=== PATIENT | female | born 1950 | race Caucasian/White ===

== ENCOUNTER 2019-04-12 12:49 | Emergency (ER) | payer MEDICARE ==
--- OUTSIDE RECORDS SUMMARY | 2019-04-12 13:14 | XMS REPORT | Continuity of Care Document ---
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 Problems Description No Information Available Social History Type Date Description Comments Sex Unknown Tobacco Use Start: Unknown Never Smoked Cigarettes ETOH Use Occasionally consumes alcohol Recreational Drug Use Denies Drug Use Tobacco Use Start: Unknown Patient has never smoked Smoking Status Reviewed: 03/06/19 Patient has never smoked Exercise Type/Frequency Exercises regularly Seat Belt/Car Seat Always uses seat belt Allergies, Adverse Reactions, Alerts Description No Known Drug Allergies Medications Active Medications SIG Qnty Indications Ordering Provider Date Misoprostol place one tab in 1tabs Kimberly Pearce MD 01/20/2014 200mcg Tablets upper vagina evening before surgery Zoloft Unknown 25mg Levothyroxine Sodium Unknown 50mcg Simvastatin Unknown 40mg Xanax 1 po prn Unknown 0.25mg Lorazepam 1/2 po prn Unknown 0.5mg Vitamin C Unknown 2000 Glucosamine Sulfate Unknown 1500mg Magnesium Citrate 1 po bid` Unknown 100mg Super B Complex Maxi Unknown Co Q10 Maximum Strength 1 po qd Unknown 200 Aspirin 1 by mouth every Unknown 81mg Chewtabs day Medications Administered in Office Medication SIG Qnty Indications Ordering Provider Date PT SCRN Tbco Id as Non User Ladan Quiros MD 02/19/2019 Injection Immunizations Description No Information Available Vital Signs Date Vital Result Comment 03/06/2019 11:44am Height 65.25 inches 5'5.25" Last Menstrual Period 7239488 0 Parity 0 02/19/2019 10:02am BP Systolic 124 mmHg BP Diastolic 72 mmHg Height 65.25 inches 5'5.25" Weight 140.00 lb BMI (Body Mass Index) 23.1 kg/m2 Last Menstrual Period 7830178 0 Results Test Acquired Date Facility Test Result H/L Range Note Laboratory test 02/19/2019 [facility] Surgical SEE RESULT 1 [place] [address] Pathology BELOW [phone] SEE RESULT BELOW Name: ELLEN MCNEILL : [address]: Ladan Quiros MD Acct: [id number] Unit: [id number] AGE: 68 Location: [facility] Re02/19/19 SEX: F Status: REG REF SPEC: [id number] FRANKIE: 02/19/19-1050 [facility] DR: Ladan Quiros MD REQ: [id number] RECD: 02/19/194605 STATUS: INOCENTE ROSEN DR: Domitila Fairbanks MD _ ORDERED: LEVEL 4, SPEC STAIN ORG/2 COMMENTS: [id number] FINAL DIAGNOSIS Skin, vulva, biopsy: -- Fragment of orthokeratotic stratum corneum. -- No underlying epidermis or dermis present for evaluation. COMMENT: GMS and PAS stains, with appropriately reacting controls, are negative for fungal organisms. PRE-OPERATIVE DIAGNOSIS Vulvar lesion GROSS DESCRIPTION The specimen is received in formalin labeled, Exfoliated Skin of Vulvar Lesion, and consists of a 1.3 x 0.5 x 0.1 cm chowdhury-white focally bosselated irregular thickened skin shave which is inked, serially sectioned and some and entirely in one cassette. Signed by and Reported on: Ellen Vaughan MD 02/20/19 1706 END OF REPORT DEPARTMENT OF PATHOLOGY, [address] [place] [address] Sd Blanc M.D. Director [facility] # [id number] Procedures Date Code Description Status 02/25/2018 [id number] Mammogram Completed 02/25/2013 [id number] Colonoscopy Completed Medical Devices Description No Information Available Encounters Type Date Location Provider Dx Diagnosis Office Visit 02/19/2019 [facility] Ladan Quiros, S30.23xA Contusion of vagina 10:00a and vulva, initial encounter Assessments Date Code Description Provider 02/19/2019 S30.23xA Contusion of vagina and vulva, initial Ladan Quiros MD encounter Plan of Treatment No Information Available Functional Status Description No Information Available Mental Status Description No Information Available Referrals Description No Information Available
--- OUTSIDE RECORDS SUMMARY | 2019-04-12 13:14 | XMS REPORT | Continuity of Care Document ---
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 Problems Description No Information Available Social History Type Date Description Comments Sex Unknown Tobacco Use Start: Unknown Never Smoked Cigarettes ETOH Use Occasionally consumes alcohol Recreational Drug Use Denies Drug Use Tobacco Use Start: Unknown Patient has never smoked Smoking Status Reviewed: 02/19/19 Patient has never smoked Exercise Type/Frequency Exercises [...] Available Vital Signs Date Vital Result Comment 02/19/2019 10:02am BP Systolic 124 mmHg BP Diastolic 72 mmHg Height 65.25 inches 5'5.25" Weight 140.00 lb BMI (Body Mass Index) 23.1 kg/m2 Last Menstrual Period 6035524 0 01/18/2014 2:06pm BP Systolic 124 mmHg BP Diastolic 74 mmHg Body Temperature 98.5 F Heart Rate 72 /min Respiratory Rate 12 /min Height 65.25 inches 5'5.25" Weight 137.00 lb BMI (Body Mass Index) 22.6 kg/m2 0 Results Test Acquired Date Facility Test Result H/L Range Note Laboratory test 02/19/2019 [facility] Surgical SEE RESULT [address] [place] [address] Pathology BELOW [phone] SEE RESULT BELOW Name: ELLEN MCNEILL : [address]: Ladan Quiros MD Acct: [id number] Unit: [id number] AGE: 68 Location: [facility] Re02/19/19 SEX: F Status: REG REF SPEC: [id number] FRANKIE: 02/19/19-[address] [facility] [address]: Ladan Quiros MD REQ: [id number] RECD: 02/19/19-8209 STATUS: INOCENTE ROSEN DR: Domitila Fairbanks MD _ ORDERED: LEVEL 4, SPEC STAIN ORG/2 COMMENTS: [id number] FINAL DIAGNOSIS Skin, vulva, biopsy: -- Fragment [...] 1706 END OF REPORT DEPARTMENT OF PATHOLOGY, [address] [place] [address] Sd Blanc M.D. Director [facility] # [id number] Procedures Date Code Description Status 02/25/2018 [id number] Mammogram Completed 02/25/2013 [id number] Colonoscopy Completed Medical Devices Description No Information Available Encounters Type Date Location Provider Dx Diagnosis Office Visit 02/19/2019 [facility] Ladan Quiros S30.23xA Contusion of vagina 10:00a and vulva, initial encounter Assessments Date Code Description Provider 02/19/2019 S30.23xA Contusion of vagina and vulva, initial Ladan Quiros MD encounter Plan of Treatment Future Appointment(s):03/06/2019 11:45 am - Ladan Quiros MD at [facility]02/19/2019 - Ladan Quiros MDS30.23xA Contusion of vagina and vulva, initial encounterComments:Pt with extensive hematoma of left and bruising on right labia minora. Pt with blood thinner and combination of bicycling stationary has resulted in large tender now itchy contusion. Superficial skin that is sluffing has been sent for evaluation. Pt to f/u for recheck in 1-2 weeks. Functional Status Description No Information Available Mental Status Description No Information Available Referrals Description No Information Available
--- OUTSIDE RECORDS SUMMARY | 2019-04-12 13:14 | XMS REPORT | Continuity of Care Document ---
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 Active Problems Provider Date Atrophic vulva Ladan Quiros MD Onset: 03/10/2019 Contusion of genital organ Ladan Quiros MD Onset: 03/10/2019 Polyp of corpus uteri Kimberly Pearce MD Onset: 03/10/2019 Osteoarthritis Ladan Quiros MD Onset: 03/26/2019 Hypothyroidism Ladan Quiros MD Onset: 03/26/2019 Social History Type Date Description Comments Sex Unknown Tobacco Use Start: Unknown Never Smoked Cigarettes ETOH Use Occasionally consumes alcohol Recreational Drug Use Denies Drug Use Tobacco Use Start: Unknown Patient has never smoked Smoking Status Reviewed: 03/25/19 Patient has never smoked Exercise Type/Frequency Exercises regularly Seat Belt/Car Seat Always uses seat belt Allergies, Adverse Reactions, Alerts Description No Known Drug Allergies Medications Active Medications SIG Qnty Indications Ordering Date Provider Estradiol place a 42.500gm Ladan 02/19/2019 0.1mg/GM Cream pea-sized MD Ishaan amount to area daily for 7 days at night then 3 times per week Misoprostol place one tab 1tabs Kimberly Pearce, 01/20/2014 200mcg in upper vagina Tablets evening before surgery Zoloft Unknown 25mg Levothyroxine Sodium Unknown 50mcg Simvastatin Unknown 40mg Xanax 1 po prn Unknown 0.25mg Lorazepam 1/2 po prn Unknown 0.5mg Vitamin C Unknown 1999 Glucosamine Sulfate Unknown 1500mg Magnesium Citrate 1 po bid` Unknown 100mg Super B Complex Maxi Unknown Co Q10 Maximum 1 po qd Unknown Strength 200 Aspirin 1 by mouth Unknown 81mg Chewtabs every day Medications Administered in Office Medication SIG Qnty Indications Ordering Provider Date PT SCRN Tbco Id as Non User Ladan Quiros MD 03/25/2019 Injection PT SCRN Tbco Id as Non User Ladan Quiros MD 03/06/2019 Injection PT SCRN Tbco Id as Non User Ladan Quiros MD 02/19/2019 Injection Immunizations Description No Information Available Vital Signs Date Vital Result Comment 03/25/2019 11:39am BP Systolic 130 mmHg BP Diastolic 68 mmHg Height 65.25 inches 5'5.25" Weight 136.00 lb BMI (Body Mass Index) 22.5 kg/m2 Last Menstrual Period 7559986 0 Parity 0 03/06/2019 11:44am BP Systolic 118 mmHg BP Diastolic 60 mmHg Height 65.25 inches 5'5.25" Weight 138.00 lb BMI (Body Mass Index) 22.8 kg/m2 Last Menstrual Period 3805519 0 Parity 0 Results Test Acquired Date Facility Test Result H/L Range Note Laboratory test 02/19/2019 [facility] Surgical SEE RESULT [address] [place] [address] Pathology BELOW [phone] SEE RESULT BELOW Name: ELLEN MCNEILL : [address]: Ladan Quiros MD Acct: [id number] Unit: [id number] AGE: 68 Location: [facility] Re02/19/19 SEX: F Status: REG REF SPEC: [id number] FRANKIE: 02/19/19-1049 [facility] DR: Ladan Quiros MD REQ: [id number] RECD: 02/19/192008 STATUS: INOCENTE ROSEN DR: Domitila Fairbanks MD _ ORDERED: LEVEL 4, SPEC STAIN ORG/2 COMMENTS: [id number] FINAL DIAGNOSIS Skin, vulva, biopsy: -- Fragment [...] 1706 END OF REPORT DEPARTMENT OF PATHOLOGY, [address] [place] [address] Sd Blanc M.D. Director [facility] # [id number] Procedures Date Code Description Status 02/25/2018 [id number] Mammogram Completed 02/25/2013 23662738 Colonoscopy Completed Medical Devices Description No Information Available Encounters Type Date Location Provider Dx Diagnosis Office Visit 03/25/2019 [facility] Ladan Quiros, S30.23xA Contusion of vagina 11:45a MD and vulva, initial encounter Office Visit 03/06/2019 [facility] Ladan Quiros, N90.5 Atrophy of vulva 11:45a MD Office Visit 02/19/2019 [facility] Ladan Quiros S30.23xA Contusion of vagina 10:00a MD and vulva, initial encounter Assessments Date Code Description Provider 03/25/2019 S30.23xA Contusion of vagina and vulva, initial Ladan Quiros MD encounter 03/06/2019 N90.5 Atrophy of vulva Ladan Quiros MD 02/19/2019 S30.23xA Contusion of vagina and vulva, initial Ladan Quiros MD encounter Plan of Treatment Future Appointment(s):04/02/2019 9:00 am - Ladan Quiros MD at [facility]03/25/2019 - Ladan Quiros MDS30.23xA Contusion of vagina and vulva, initial encounterComments:Pt with new bruising to right labia minora. Pt to use vuvlar E2 and place E2 to vagina to help improve elasticity of tissue and hopefully decrease bruising. Pt currently on Baby ASA which adds to ease of bruising on labia Functional Status Description No Information Available Mental Status Description No Information Available Referrals Description No Information Available
[2019-04-12 13:25] LABS: ABS Basophils 0.1 10^3/ul (0-0.2); ABS Eosinophils 0.1 10^3/ul (0-0.6); ABS Lymphocytes 1.2 10^3/ul (1.0-4.8); ABS Monocytes 0.7 10^3/ul (0-0.8); ABS Neutrophils 3.2 10^3/ul (1.5-7.7); Eosinophil % 1.3 %; Hematocrit 40 % (35-47); Hemoglobin 13.4 g/dL (12.0-16.0); Lymphocyte % 22.9 %; Mean Corpuscular HGB Conc 34 g/dL (31-36); Mean Corpuscular Hemoglobin 32 pg (27-31); Mean Corpuscular Volume 95 fL (80-97); Mean Platelet Volume 7.7 fL (7.4-10.4); Nucleated Red Blood Cells % 0.1; Platelet Count 232 10^3/uL (150-450); Red Blood Count 4.18 10^6 /uL (3.70-4.87); Red Cell Distribution Width 13 % (10-15); White Blood Count 5.2 10^3/uL (3.5-10.8)
[2019-04-12 13:36] LABS: Albumin 4.3 g/dL (3.2-5.2); Calcium 9.3 mg/dL (8.6-10.3); Magnesium 1.8 mg/dL (1.9-2.7); Potassium 3.5 mmol/L (3.5-5.0); Total Bilirubin 0.4 mg/dL (0.2-1.0)
[2019-04-12 13:42] LABS: Albumin/Globulin Ratio 1.7 (1-3); BUN/Creatinine Ratio 12.7 (8-20); EGFR African American 99.4 (>60); EGFR Non-African American 82.1 (>60); Globulin 2.6 g/dL (2-4); Total Protein 6.9 g/dL (6.4-8.9)
[2019-04-12 13:58] LABS: TSH (Thyroid Stimulating Horm) 2.79 mcIU/mL (0.34-5.60)
--- NOTE | 2019-04-12 15:27 | ED ---
Syncope/Near Syncope - HPI Summary HPI Summary: Pt. is a 68 y.o female who presents to the ER for evaluation of a syncopal episode that occurred 3 days ago. Pt. notes over the last few days she has had mild diarrhea and nausea and has not been eating or drinking much. Pt. Was on a plane back to [place] 3 days ago when she had a syncopal episode. Pt. states she stood up from the plane bathroom and passed out. Pt. denies associated chest pain, SOB, abd. pain, h/a, leg swelling/pain. Hx of TIA. Is not anticoagulated. Pt. notes she had stress test and AURELIANO roughly 5 years ago that was normal per pt. Pt. states today she is feeling better and started to eat toast but was concerned that her HR was in the 80's today which she states is high for her. Sxs are moderate in severity. No current modifying factors. - History Of Current Complaint Chief Complaint: EDSyncope Time Seen by Provider: 04/12/19 15:25 Hx Obtained From: Patient - Allergies/Home Medications Allergies/Adverse Reactions: Allergies Allergy/AdvReac Type Severity Reaction Status Date / Time No Known Allergies Allergy Verified 07/30/18 11:20 PMH/Surg Hx/FS Hx/Imm Hx Previously Healthy: Yes Endocrine/Hematology History: Reports: Hx Thyroid Disease Denies: Hx Diabetes Cardiovascular History: Reports: Other Cardiovascular Problems/Disorders - SIMVASTATIN FOR HX OF TIA Denies: Hx Hypertension, Hx Pacemaker/ICD Respiratory History: Denies: Hx Asthma History: Denies: Hx Dialysis, Hx Renal Disease Musculoskeletal History: Reports: Hx Arthritis - OSTEOARTHRITIS Denies: Hx Osteoporosis Sensory History: Reports: Hx Contacts or Glasses - GLASSES FOR DISTANT ONLY Denies: Hx Hearing Aid Opthamlomology History: Reports: Hx Contacts or Glasses - GLASSES FOR DISTANT ONLY Neurological History: Reports: Other Neuro Impairments/Disorders - OCCASIONAL LOWER BACK PAIN Psychiatric History: Denies: Hx Panic Disorder - Surgical History Surgery Procedure, Year, and Place: 02/2012 L5 S1 BACK SURGERY, [facility]/RIGHT KNEE LATERAL RELEASE AND BONE SPURS REMOVED THEN RT KNEE REPLACEMENT,RIGHT SHOULDER SURGERY,BILATERAL CARPAL TUNNEL AND TRIGGER FINGER RELEASES/TONSILLECTOMY,1975/ LEFT ANKLE SURGERY LIGAMENT RECONSRTUCTION, [place]. left Hip, right knee Hx Anesthesia Reactions: No Infectious Disease History: No Infectious Disease History: Denies: Traveled Outside the [place] in Last 30 Days - Family History Known Family History: Positive: Non-Contributory Family History: NON CONTRIBUTORY - Social History Occupation: Retired Lives: With Family Alcohol Use: Daily Alcohol Amount: 1 LIGHT BEER DAILY Substance Use Type: Reports: None Smoking Status (MU): Never Smoked Tobacco Review of Systems Constitutional: Negative Negative: Fever Eyes: Negative Positive: Nasal Discharge Cardiovascular: Negative Negative: Palpitations, Chest Pain Respiratory: Negative Negative: Shortness Of Breath, Cough Positive: Diarrhea, Nausea. Negative: Abdominal Pain, Vomiting Genitourinary: Negative Negative: dysuria Musculoskeletal: Negative Skin: Negative Positive: Syncope. Negative: Headache, Weakness, Paresthesia, Numbness Positive: Anxious All Other Systems Reviewed And Are Negative: Yes Physical Exam Triage Information Reviewed: Yes Vital Signs On Initial Exam: Initial Vitals Temp Pulse Resp BP Pulse Ox 98.8 F 85 19 117/79 100 04/12/19 12:50 04/12/19 12:50 04/12/19 12:50 04/12/19 12:50 04/12/19 12:50 Vital Signs Reviewed: Yes Appearance: Positive: Well-Appearing - Pt. sitting on side of bed in NAD. Family member present. Skin: Positive: Warm, Dry Head/Face: Positive: Normal Head/Face Inspection Eyes: Positive: Normal, EOMI, JENNIFER ENT: Positive: Pharynx normal, TMs normal Neck: Positive: Supple Respiratory/Lung Sounds: Positive: Clear to Auscultation, Breath Sounds Present Cardiovascular: Positive: Normal, RRR Abdomen Description: Positive: Nontender, Soft Musculoskeletal: Positive: Normal, Strength/ROM Intact. Negative: Edema Left, Edema Right Neurological: Positive: Normal, CN Intact II-III Psychiatric: Positive: Affect/Mood Appropriate Procedures - Sedation Patient Received Moderate/Deep Sedation with Procedure: No Diagnostics - Vital Signs Vital Signs Temp Pulse Resp BP Pulse Ox 04/12/19 14:39 98.8 F 71 19 107/66 100 04/12/19 12:50 98.8 F 85 19 117/79 100 - Laboratory Lab Results: Lab Results 04/12/19 04/12/19 04/12/19 Range/Units 13:17 13:17 13:17 WBC 5.2 (3.5-10.8) 10^3/uL RBC 4.18 (3.70-4.87) 10^6 /uL Hgb 13.4 (12.0-16.0) g/dL Hct 40 (35-47) % MCV 95 (80-97) fL MCH 32 H (27-31) pg MCHC 34 (31-36) g/dL RDW 13 (10-15) % Plt Count 232 (150-450) 10^3/uL MPV 7.7 (7.4-10.4) fL Neut % (Auto) 62.2 % Lymph % (Auto) 22.9 % [place] % (Auto) 12.6 % Eos % (Auto) 1.3 % Baso % (Auto) 1.0 % Absolute Neuts (auto) 3.2 (1.5-7.7) 10^3/ul Absolute Lymphs (auto) 1.2 (1.0-4.8) 10^3/ul Absolute Monos (auto) 0.7 (0-0.8) 10^3/ul Absolute Eos (auto) 0.1 (0-0.6) 10^3/ul Absolute Basos (auto) 0.1 (0-0.2) 10^3/ul Absolute Nucleated RBC 0.0 10^3/ul Nucleated RBC % 0.1 Sodium 132 L (135-145) mmol/L Potassium 3.5 (3.5-5.0) mmol/L Chloride 101 (101-111) mmol/L Carbon Dioxide 25 (22-32) mmol/L Anion Gap 6 (2-11) mmol/L BUN 9 (6-24) mg/dL Creatinine 0.71 (0.51-0.95) mg/dL Est GFR ( Amer) 99.4 (>60) Est GFR (Non-Af Amer) 82.1 (>60) BUN/Creatinine Ratio 12.7 (8-20) Glucose 143 H (70-100) mg/dL Lactic Acid 0.8 (0.5-2.0) mmol/L Calcium 9.3 (8.6-10.3) mg/dL Magnesium 1.8 L (1.9-2.7) mg/dL Total Bilirubin 0.40 (0.2-1.0) mg/dL AST 26 (13-39) U/L ALT 21 (7-52) U/L Alkaline Phosphatase 50 (34-104) U/L Troponin I 0.00 (<0.03) ng/mL Total Protein 6.9 (6.4-8.9) g/dL Albumin 4.3 (3.2-5.2) g/dL Globulin 2.6 (2-4) g/dL Albumin/Globulin Ratio 1.7 (1-3) TSH 2.79 (0.34-5.60) mcIU/mL Result Diagrams: 04/12/19 13:17 04/12/19 13:17 Lab Statement: Any lab studies that have been ordered have been reviewed, and results considered in the medical decision making process. Course/Dx Course Of Treatment: Pt. presenting after syncopal episode 3 days ago. Also mild diarrhea and nausea. Afebrile with stable VS. Pt. without SOB or leg swelling. Pt. notes improving nausea and started eating today. Pt. given IV fluids. Suspect dehydration. ECG done at 1304 shows a sinus rhythm of 76bpm, normal axis, no ST elevation or depression. Labs unremarkable other than mildly low mag and Na. Orthostatic VS normal. on re-exam pt. feeling better. Results discussed. She is tolerating PO fluids. Will dc home to . with pcp in 2-3 days. To increase fluids. Will return to er if sxs change or worsen. pt. understands and agrees with plan. - Diagnoses Differential Diagnosis/HQI/PQRI: Positive: Dysrhythmia, Hypoglycemia, Hypovolemia, Vasovagal Episode Provider Diagnoses: Syncope, Dehydration Discharge ED - Sign-Out/Discharge Documenting (check all that apply): Patient Departure - Discharge Plan Condition: Improved Disposition: HOME Patient Education Materials: Dehydration (ED), Syncope (ED) Referrals: Domitila Fairbanks MD [Primary Care Provider] - Additional Instructions: Please see your PCP in 2-3 days for recheck Increase fluids with water, Gatorade, pedialyte Return to ER if symptoms change or worsen - Billing Disposition and Condition Condition: IMPROVED Disposition: Home - Attestation Statements Provider Attestation: I was available for consult. This patient was seen by the GERARD. The patient was not presented to, seen by, or examined by me. -Nik
[2019-04-12] MEDS ORDERED: NS 0.9% 1000 ML** 1,000 ML IV ONE (15:40)
[2019-04-12 15:55] LABS: Urine Appearance Clear; Urine Bilirubin Negative (Negative); Urine Blood Negative (Negative); Urine Color Straw; Urine Glucose Negative (Negative); Urine Ketones Negative (Negative); Urine Nitrite Negative (Negative); Urine Protein Negative (Negative); Urine Specific Gravity 1.004 (1.010-1.030); Urine Urobilinogen Negative (Negative)
[2019-04-12 17:23] VITALS: BP 129/73
== END 2019-04-12 17:22 | disposition home or self-care (01) ==
LOC: ED 12:49
DX: R55 Syncope and collapse (principal); E86.0 Dehydration; E07.9 Disorder of thyroid, unspecified; Z86.73 Personal history of transient ischemic attack (TIA), and cerebral infarction without residual deficits; Z96.651 Presence of right artificial knee joint; Z79.899 Other long term (current) drug therapy
CPT/HCPCS: 36415; 80053; 81003; 83605; 83735; 84443; 84484; 85025; 93005; 96360; 99282

== ENCOUNTER 2019-04-27 23:15 | Inpatient (IN) | payer MEDICARE ==
[2019-04-27] MEDS ORDERED: fentaNYL* 50 MCG/ML 2 ML VIAL (100 MCG VIAL) IV SLOW PU ONE (23:34)
[2019-04-27] MEDS ORDERED: Ondansetron INJ* 2 MG/ML VIAL IV ONE (23:35)
--- NOTE | 2019-04-28 00:01 | ED ---
Lower Extremity - HPI Summary HPI Summary: 68-year-old female presents with right knee pain after fall today. States she was moving a mattress and she ended up falling down some stairs and landing on her right knee. She states she states she only has pain in the right knee. Had a total knee replacement in 2013 in [facility]. She denies any numbness or tingling. Denies any hip pain. No head injury. No loss consciousness. fall was mechanical fall. no chest pain or SOB. She has history of TIA and thyroid. - History of Current Complaint Chief Complaint: EDFall Stated Complaint: FALL PER EMS Time Seen by Provider: 04/27/19 23:30 Pain Intensity: 7 - Allergies/Home Medications Allergies/Adverse Reactions: Allergies Allergy/AdvReac Type Severity Reaction Status Date / Time No Known Allergies Allergy Verified 04/27/19 23:26 Home Medications: Home Medications Ascorbic Acid TAB* [Vitamin C TAB*] 1,000 mg PO BID 01/18/14 [History Confirmed 04/27/19] Aspirin [Aspirin EC] 81 mg PO QAM 01/18/14 [History Confirmed 04/27/19] Coenzyme Q10 (Ubidecarenone) [Co Q-10] 200 mg PO QAM 01/18/14 [History Confirmed 04/27/19] Glucosamine Sulfate Dipot Chlr [Glucosamine Sulfate] 750 mg PO BID 01/18/14 [ History Confirmed 04/27/19] Levothyroxine Sodium [Levoxyl] 50 mcg PO QAM 01/18/14 [History Confirmed ] Magnesium [Magnacaps] 100 mg PO BID 01/18/14 [History Confirmed 04/27/19] Sertraline HCl [Zoloft] 100 mg PO QAM 01/18/14 [History Confirmed 04/27/19] Cholecalciferol [Vitamin D] 1 tab PO DAILY 08/24/15 [History Confirmed 04/27/19] Pravastatin (NF) [Pravachol (NF)] 1 tab PO DAILY 08/24/15 [History Confirmed 04/16] PMH/Surg Hx/FS Hx/Imm Hx Endocrine/Hematology History: Reports: Hx Thyroid Disease Denies: Hx Diabetes Cardiovascular History: Reports: Other Cardiovascular Problems/Disorders - SIMVASTATIN FOR HX OF TIA Denies: Hx Hypertension, Hx Pacemaker/ICD Respiratory History: Denies: Hx Asthma History: Denies: Hx Dialysis, Hx Renal Disease Musculoskeletal History: Reports: Hx Arthritis - OSTEOARTHRITIS Denies: Hx Osteoporosis Sensory History: Reports: Hx Contacts or Glasses - GLASSES FOR DISTANT ONLY Denies: Hx Hearing Aid Opthamlomology History: Reports: Hx Contacts or Glasses - GLASSES FOR DISTANT ONLY Neurological History: Reports: Other Neuro Impairments/Disorders - OCCASIONAL LOWER BACK PAIN Psychiatric History: Denies: Hx Panic Disorder - Surgical History Surgery Procedure, Year, and Place: 02/2012 L5 S1 BACK SURGERY, [place]/RIGHT KNEE LATERAL RELEASE AND BONE SPURS REMOVED THEN RT KNEE REPLACEMENT,RIGHT SHOULDER SURGERY,BILATERAL CARPAL TUNNEL AND TRIGGER FINGER RELEASES/TONSILLECTOMY,1975/ LEFT ANKLE SURGERY LIGAMENT RECONSRTUCTION, [place]. left Hip, right knee Hx Anesthesia Reactions: No - Immunization History Date of Influenza Vaccine: 11/2018 Infectious Disease History: No Infectious Disease History: Denies: Traveled Outside the [place] in Last 30 Days - Family History Known Family History: Positive: Non-Contributory Family History: NON CONTRIBUTORY - Social History Alcohol Use: Daily Alcohol Amount: 1 LIGHT BEER DAILY Substance Use Type: Reports: None Smoking Status (MU): Never Smoked Tobacco Review of Systems Negative: Fever Negative: Chest Pain Negative: Shortness Of Breath Positive: Myalgia - right knee pain All Other Systems Reviewed And Are Negative: Yes Physical Exam Triage Information Reviewed: Yes Vital Signs On Initial Exam: Initial Vitals Pulse Pulse Ox 80 100 04/27/19 23:23 04/27/19 23:23 Vital Signs Reviewed: Yes Appearance: Positive: Pain Distress Skin: Positive: Warm, Dry Head/Face: Positive: Normal Head/Face Inspection Eyes: Positive: Normal, Conjunctiva Clear ENT: Positive: Pharynx normal Respiratory/Lung Sounds: Positive: Clear to Auscultation, Breath Sounds Present Cardiovascular: Positive: Normal, RRR Musculoskeletal: Positive: Limited @ - right knee, Other - good pulses, sensation grossly intact, capillary refill<2 secs, tenderness distal femur, edema noted to area, nontender right hip or ankle Neurological: Positive: Normal Psychiatric: Positive: Normal Procedures - Sedation Patient Received Moderate/Deep Sedation with Procedure: No Diagnostics - Vital Signs Vital Signs Temp Pulse Resp BP Pulse Ox 04/27/19 23:45 18 04/27/19 23:25 81 146/73 100 04/27/19 23:24 96.7 F 78 22 146/73 100 04/27/19 23:23 80 100 - Laboratory Result Diagrams: 04/28/19 00:35 04/28/19 00:35 Lab Statement: Any lab studies that have been ordered have been reviewed, and results considered in the medical decision making process. - Radiology knee Radiology Interpretation Completed By: ED Physician Summary of Radiographic Findings: distal femur fracture Re-Evaluation - Re-Evaluation First Eval Comment: pain is better with fenatyl Lower Extremity Course/Dx - Course Course Of Treatment: 68-year-old female presents with right knee pain after fall today. States she was moving a mattress and she ended up falling down some stairs and landing on her right knee. She states she states she only has pain in the right knee. Had a total knee replacement in 2013 in [facility]. She denies any numbness or tingling. Denies any hip pain. No head injury. No loss consciousness. fall was mechanical fall. no chest pain or SOB. She has history of TIA and thyroid. on exam tenderness distal right femur. neurovascular intact. xray shows distal femur fracture above knee replacement. discussed with dr bhardwaj who says can do surgery here and can admit to hospitalist. discussed with dr Gamboa who agrees to admit. - Diagnoses Differential Diagnosis/HQI/PQRI: Positive: Fracture (Closed), Sprain, Strain Provider Diagnoses: Femoral distal fracture, Fall Discharge ED - Sign-Out/Discharge Documenting (check all that apply): Patient Departure - Discharge Plan Condition: Stable Disposition: ADMITTED TO [facility] Referrals: Domitila Fairbanks MD [Primary Care Provider] - - Billing Disposition and Condition Condition: STABLE Disposition: Admitted to [facility]
[2019-04-28 00:42] LABS: ABS Basophils 0.3 10^3/ul (0-0.2); ABS Eosinophils 0.1 10^3/ul (0-0.6); ABS Lymphocytes 1.1 10^3/ul (1.0-4.8); ABS Monocytes 0.6 10^3/ul (0-0.8); ABS Neutrophils 5.6 10^3/ul (1.5-7.7); Eosinophil % 1.1 %; Hematocrit 36 % (35-47); Hemoglobin 12.3 g/dL (12.0-16.0); Lymphocyte % 14.3 %; Mean Corpuscular HGB Conc 34 g/dL (31-36); Mean Corpuscular Hemoglobin 32 pg (27-31); Mean Corpuscular Volume 93 fL (80-97); Mean Platelet Volume 7.6 fL (7.4-10.4); Platelet Count 281 10^3/uL (150-450); Red Blood Count 3.86 10^6 /uL (3.70-4.87); Red Cell Distribution Width 13 % (10-15); White Blood Count 7.7 10^3/uL (3.5-10.8)
[2019-04-28 00:50] LABS: Activated Partial Thrombo Time 31.3 seconds (26.0-38.0)
[2019-04-28 00:59] LABS: Albumin 4.1 g/dL (3.2-5.2); Albumin/Globulin Ratio 1.7 (1-3); BUN/Creatinine Ratio 21.4 (8-20); Calcium 9.3 mg/dL (8.6-10.3); EGFR Non-African American 83.5 (>60); Globulin 2.4 g/dL (2-4); Potassium 3.7 mmol/L (3.5-5.0); Total Bilirubin 0.4 mg/dL (0.2-1.0); Total Protein 6.5 g/dL (6.4-8.9)
[2019-04-28] MEDS ORDERED: HYDROmorphone INJ1* 1 MG/ML SYRINGE IV SLOW PU ONE (01:14)
[2019-04-28] MEDS ORDERED: Morphine INJ* 2 MG/ML 1 ML SYRINGE (TWO MG - NEW SYRINGE VERSION) IV PRN (01:42)
[2019-04-28] MEDS ORDERED: Al Hydrox/Mg Hydrox/Simet LIQ* 30 ML UDC PO PRN (01:42)
--- NOTE | 2019-04-28 04:01 | HP ---
ADDENDUM NOW INCLUDED ON THIS REPORT CC: Dr. Domitila Fairbanks * HISTORY AND PHYSICAL: DATE OF ADMISSION: 04/28/19 TIME OF ADMISSION: 2 a.m. PRIMARY CARE PHYSICIAN: Dr. Domitila Fairbanks. CHIEF COMPLAINT: Fall. HISTORY OF PRESENT ILLNESS: This is a 68-year-old woman with a history of hypothyroid and a TIA, who presents to the ED after she fell down 2 stairs. She had been dragging a memory foam mattress off a flight of stairs and when she rounded the corner with a landing that had 2 stairs going up, she turned around to pull it up after it got stuck and she fell down 2 stairs and landed on the landing. She had sudden onset of pain above her right knee and was brought to the emergency department. In the ED, she was found to have a distal femoral fracture and Orthopedic Surgery recommended admission and they will see her in the morning. PAST MEDICAL HISTORY: 1. Hypothyroidism. 2. TIA. PAST SURGICAL HISTORY: She has had multiple orthopedic surgeries including hip and knee replacements, shoulder and back surgeries, and carpal tunnel syndrome. HOME MEDICATIONS: 1. Zoloft 100 mg daily. 2. Pravastatin 20 mg daily. 3. Levothyroxine 50 mcg daily. 4. Aspirin 81 mg daily. FAMILY HISTORY: Unrelated. SOCIAL HISTORY: She is a never smoker. She drinks 1 beer per night. She lives with her partner Ellen Crocker who is her healthcare proxy as well. She exercises daily. REVIEW OF SYSTEMS: Positive for pain in the knee. She denies headache, visual changes, palpitations, lightheadedness, nausea, vomiting, chest pain, or shortness of breath. PHYSICAL EXAMINATION GENERAL: Alert, well-appearing woman, in no distress, resting comfortably. VITAL SIGNS: Temperature 96.7, heart rate 72, respiratory rate 20, pulse ox 99 % on room air, blood pressure 133/76. HEENT: Her pupils are 4 mm bilaterally and reactive to light. Her oral mucosa is moist. NECK: No JVP or adenopathy. CHEST: She is in a regular rate and rhythm with no murmurs. Her lungs are clear bilaterally. ABDOMEN: Soft, nontender, nondistended. No guarding or rebound. EXTREMITIES: The right knee has an old healed incision. I did not attempt to move the knee. She can wiggle her toes and ankles and her distal pulses are 2+ . Her compartments are soft. DIAGNOSTIC STUDIES/LAB DATA: White blood cells 7.7, hemoglobin 12.3, platelets 281. INR 1.0. Sodium 135, potassium 3.7, chloride 101, BUN 15, creatinine 0.7, glucose 127. Lactic acid 0.7. Troponin 0.00. Knee x-ray has not been read by Radiology, but has an obvious distal femur fracture. ASSESSMENT AND PLAN: This is a 68-year-old woman with a history of hypothyroid and transient ischemic attack, who presented to the emergency department after a fall and was found to have a distal femur fracture. 1. Right distal femur fracture. Orthopedics has already been consulted by the emergency department and they agreed to evaluate Ms. Mcneill in the morning for operative management. I will continue pain control with Dilaudid, which has been helpful for her in the emergency department so far. I am holding her aspirin in anticipation of surgical plan. I will get an EKG to assist in preop planning as well. Her RCRI is 1 point, which estimates a 6% 30-day risk of , VT, or cardiac arrest. She gets 1 point due to her history of cerebrovascular disease. She is appropriately managed medically with a statin and an aspirin. The aspirin will be on hold and she will be restarted postoperatively. I will sign her out to Dr. Fairbanks who knows her well and can add any further recommendations to her perioperative recommendations. 2. Hypothyroid. Continue her home dose of Synthroid. 3. Disposition: Admit to short stay. Keep n.p.o. for anticipation of surgical management. 4. Pain control with Dilaudid. 5. DVT prophylaxis with Lovenox. ADDENDUM: I have reviewed the EKG. The EKG shows normal sinus rhythm, normal axis, normal intervals, and no ST changes. [id number]/CPS #: [id number]/CPS #: [id number] BIB
[2019-04-28] MEDS: HYDROmorphone INJ1* 1 MG/ML SYRINGE IV PRN ×5 (04:25→18:32)
[2019-04-28] MEDS: NS 0.9% 1000 ML** 1,000 ML IV SCH ×2 (04:26→23:55)
[2019-04-28 05:20] LABS: Urine Appearance Clear; Urine Bilirubin Negative (Negative); Urine Blood Negative (Negative); Urine Color Yellow; Urine Glucose Negative (Negative); Urine Ketones Trace (Negative); Urine Nitrite Negative (Negative); Urine Protein Negative (Negative); Urine Specific Gravity 1.014 (1.010-1.030); Urine Urobilinogen Negative (Negative)
[2019-04-28] MEDS: Levothyroxine TAB* 50 MCG TAB PO SCH (05:53)
--- NOTE | 2019-04-28 07:12 | HP ---
HISTORY AND PHYSICAL: ADDENDUM: I have reviewed the EKG. The EKG shows normal sinus rhythm, normal axis, normal intervals, and no ST changes. [id number]/[facility] #: [id number] [facility] [place]
[2019-04-28] MEDS ORDERED: Enoxaparin(*) 40 MG/0.4 ML SYR SUBCUT SCH (08:00)
[2019-04-28] MEDS: Magnesium Oxide TAB* 400 MG PO SCH ×2 (09:02→23:49)
[2019-04-28] MEDS: Cholecalciferol TAB* 1000 UNITS PO SCH (09:02)
[2019-04-28] MEDS: Ascorbic Acid TAB* 500 MG PO SCH ×2 (09:02→23:49)
[2019-04-28] MEDS: Sertraline* 100 MG TAB PO SCH (09:03)
[2019-04-28] MEDS: CMCS:Pravastatin (NF) 20 MG TAB PO SCH (09:03)
[2019-04-28] MEDS ORDERED: LORazepam INJ* 2 MG/ML 1 ML VIAL IV PUSH ONE (09:51)
[2019-04-28] MEDS ORDERED: Lorazepam PYXIS KEY PRN (09:59)
--- NOTE | 2019-04-28 13:05 | CONS ---
CONSULTATION REPORT: DATE OF CONSULT: 04/28/19 ATTENDING ORTHOPEDIC PROVIDER: Dr. Lucila Chaparro. CHIEF COMPLAINT: Fall with right periprosthetic fracture of distal femur. HISTORY OF PRESENT ILLNESS: The patient is a 68-year-old female with past medical history of hypothyroidism and TIA, who presents to the emergency room after a mechanical fall. The fall occurred while she was dragging a memory foam mattress up a flight of stairs. She rounded the corner and fell directly to her knees. She had immediate pain in her right lower extremity. She had no other injuries. There was no associated chest pain, shortness of breath, dizziness, nausea. She was brought to the emergency room and identified to have a fracture of the distal femur periprosthetic around a total knee replacement. Total knee replacement was done in 2013 at [facility]. She has been n.p.o. since arrival to the hospital. She has no history of heart attack. She has no history of stroke, though she does have history of TIA. No history of blood clot. PAST MEDICAL HISTORY: Significant for hypothyroidism and TIA. PAST SURGICAL HISTORY: She has had her right total knee replacement in 2013. She had a left total hip replacement, carpal tunnel, history of shoulder surgery and back surgery. No history of adverse reactions with anesthesia. HOME MEDICATIONS: 1. Zoloft 100 mg p.o. daily. 2. Pravastatin 20 mg daily. 3. Levothyroxine 50 mcg daily. 4. Aspirin 81 mg daily. FAMILY HISTORY: No family history of adverse reactions with anesthesia. SOCIAL HISTORY: The patient lives with her partner, Ellen Crocker, in their own home. She uses no assistive device and she exercises daily. She is a nonsmoker. Drinks 1 beer per night. No drug use. REVIEW OF SYSTEMS: General: Negative for fever or chills. HEENT: No head trauma, headache, change in vision. Cardiac: No chest pain. No history of heart attack. Respiratory: No shortness of breath. No cough. Abdomen: No abdominal pain, nausea, vomiting, diarrhea. : No dysuria. Musculoskeletal: Positive for right lower extremity pain. Neuro: No decreased sensation of the extremities. Hematology: No history of blood clots. PHYSICAL EXAM: Vital Signs: Temperature 98.7, pulse rate 68, respiratory rate 19, oxygen saturation 100%, blood pressure 116/57. General: Well appearing, in no acute distress, resting comfortably in bed. HEENT: Normocephalic, atraumatic. Extraocular movements intact. Heart: S1, S2. Regular rate and rhythm without murmur. Lungs: Clear to auscultation bilaterally. Abdomen: Nondistended, nontender. Bowel sounds normoactive. Extremities: Bilateral upper extremities with skin envelope intact. Nontender to palpation. Able to flex and extend at all joints without any pain. Left lower extremity: Skin envelope intact. Nontender to palpation. Able to flex and extend at all joints without pain. Negative log roll at the hip. Right lower extremity: Skin envelope is intact. There is obvious deformity of the distal femur. She is tender to palpation about the distal femur. No tenderness to palpation about the extremity otherwise. Vascular: DP 2+ bilaterally. Cap refill less than 2 seconds distally. Neuro: Sensation intact to light touch distally. DIAGNOSTIC STUDIES/LAB DATA: WBC 7.7, hemoglobin 12.3, hematocrit 36, platelets 281. INR 1. Sodium 135, potassium 3.7, creatinine 0.7. Right knee x-ray demonstrates an angulated comminuted periprosthetic fracture of the right distal femur. ASSESSMENT: Periprosthetic fracture of the right distal femur. PLAN: The patient will be nonweightbearing, on bedrest. She will be in a knee immobilizer. The patient requests that Dr. Chaparro be her surgeon. She will have an ORIF of the right distal femur today, 04/28/19. Hold chemical DVT prophylaxis. The patient should use SCDs. Preop type and screen ordered. The patient has been medically optimized by medicine. Discussed with Dr. Domitila Fairbanks. NOLA JHAVERI [id number] #: [id number] BIB
[2019-04-28] MEDS ORDERED: Buffered Lidocaine 1% SYRIN* 1 ML/SYRINGE INTRADERM ONE (13:31)
[2019-04-28] MEDS ORDERED: Famotidine IV* 10 MG/ML 2 ML (20 mg) IV ONE (13:31)
[2019-04-28] MEDS ORDERED: Lactated Ringers 1000 ML Bag* 1,000 ML IV SCH (14:00)
[2019-04-28] MEDS ORDERED: Famotidine IV* 10 MG/ML 2 ML (20 mg) ONE (15:12)
[2019-04-28] MEDS ORDERED: ceFAZolin 2 GM in NS PREMIX(*) 2 GM/100 ML BAG IVPB ONE (15:33)
[2019-04-28] MEDS ORDERED: HYDROmorphone INJ* 0.5 MG/0.5 ML SYRINGE ONE (18:23)
[2019-04-28] MEDS ORDERED: HYDROmorphone INJ1* 1 MG/ML SYRINGE ONE (18:30)
[2019-04-28] MEDS ORDERED: Bupivacaine 0.5% SDV PF* 30ML VIAL ONE (18:31)
[2019-04-28] MEDS ORDERED: KETAMINE HCL* 50 MG/ML 10 ML VIAL ONE (18:31)
[2019-04-28] MEDS ORDERED: Midazolam* 1 MG/ML 5 ML VIAL (5 MG) ONE (18:31)
[2019-04-28] MEDS ORDERED: Propofol* 10 MG/ML 20 ML BTL ONE (19:12)
[2019-04-28] MEDS ORDERED: Dexamethasone IV* 4 MG/ML 1 ML (4 MG) ONE (19:12)
[2019-04-28] MEDS ORDERED: Ondansetron INJ* 2 MG/ML VIAL IV PRN (19:55)
[2019-04-28] MEDS ORDERED: Naloxone* 0.4 MG/ML 1 ML VIAL IV PRN (19:55)
[2019-04-28] MEDS ORDERED: diPHENhydraMINE IV* 50 MG/ML 1 ml VIAL (BENADRYL) IV PRN (19:55)
[2019-04-28] MEDS ORDERED: fentaNYL* 50 MCG/ML 2 ML VIAL (100 MCG VIAL) IV PRN (19:55)
[2019-04-28] MEDS ORDERED: HYDROcodone/ACETAMIN 5-325 MG* 1 TAB PO PRN (19:55)
[2019-04-28] MEDS ORDERED: DiMENhydriNATE IV* 50 MG/ML VIAL IV PUSH PRN (19:55)
[2019-04-28] MEDS ORDERED: diPHENhydraMINE IV* 50 MG/ML 1 ml VIAL (BENADRYL) ONE (20:45)
[2019-04-28] MEDS ORDERED: fentaNYL* 50 MCG/ML 2 ML VIAL (100 MCG VIAL) ONE (20:46)
[2019-04-28] MEDS ORDERED: Hetastarch 6% in NS* 500 ML IV ONE (21:07)
[2019-04-28] MEDS ORDERED: ceFAZolin VIAL(*) VIAL ONE (22:02)
[2019-04-28 22:47] LABS: Hematocrit 28 % (35-47); Hemoglobin 9.5 g/dL (12.0-16.0)
[2019-04-28] MEDS: LORazepam TAB(*) 0.5 MG PO PRN (23:48)
[2019-04-29] MEDS ORDERED: Acetaminophen TAB* 325 MG PO PRN
[2019-04-29] MEDS ORDERED: oxyCODONE/Acetamin 5/325 MG* TAB PO PRN
[2019-04-29] MEDS: HYDROmorphone INJ1* 1 MG/ML SYRINGE IV PRN ×3 (00:59→11:59)
[2019-04-29] MEDS: ceFAZolin 1 GM* X 3 DOSES POST-OP Q8H (AddVan) IVPB SCH ×6 (04:10→20:16)
--- NOTE | 2019-04-29 04:25 | OP ---
DATE OF OPERATION: 04/28/19 - ROOM #350 DATE OF : 52 SURGEON: Lucila Chaparro MD INSIDE WIREMAN: NOLA Padgett ANESTHESIOLOGIST: Dr. Weir. ANESTHESIA: Spinal. PRE-OP DIAGNOSIS: Right displaced comminuted distal femoral periprosthetic fracture. POST-OP DIAGNOSIS: Right displaced comminuted distal femoral periprosthetic fracture. OPERATIVE PROCEDURE: Open reduction and internal fixation of the right distal femoral periprosthetic fracture. HARDWARE USED: A distal femoral locking plate from [employer], this is a 12-hole distal femoral plate; two 6.0 cancellous screws and four 5.0 locking screws were used distally in the plate, proximally a 4.5 cortical screw and two 5.0 locking screws were used. Three Dall-Miles cables were also used for additional fixation. COMPLICATIONS: None. ESTIMATED BLOOD LOSS: 350 cc. SPECIMEN: None. BRIEF HISTORY/INDICATION: Ms. Mcneill is a 68-year-old female, who had a fall with immediate onset right thigh and knee pain. She was unable to bear weight and was brought to [facility]. She was diagnosed with a right distal periprosthetic fracture of the femur. This was noted to have extensive comminution and displacement. The patient was given operative and nonoperative treatment options. The patient elected to proceed with operative fixation of the fracture. We discussed using a distal locking plate and screws. We discussed the risks and benefits of the procedure that included but were not limited to bleeding, infection, damage to nearby structures, continued pain, need for further surgery, failure of the hardware, failure of the bone to heal, need for bone grafting in the future, anesthesia complications, stroke, heart attack, blood clot, and . She wished to proceed. INTRAOPERATIVE FINDINGS: The patient's fracture showed extensive comminution both anteriorly along the cortex and especially distally and posteriorly at the cortex. Her distal femoral implant was visualized and noted to be stable. The patient was noted to have osteopenia. DESCRIPTION OF PROCEDURE: Ms. Mcneill was identified in the preanesthesia unit. Her right lower extremity was marked as the correct operative site. Informed consent was signed and placed in the chart. The patient was taken to the operating room and placed under general anesthesia. A Dewitt catheter was placed. Right lower extremity was prepped and draped in usual sterile fashion. Preop time-out was made to correctly identify the patient, side and site. The appropriate perioperative antibiotics were given within 1 hour of incision. A standard lateral incision was made along the femur with a 10 blade and curved anteriorly at its distal point. Electrocautery was used to dissect down to the lateral fascia. Lateral fascia was incised. The vastus lateralis muscle was carefully elevated anteriorly with careful attention to hemostasis. The fracture site was identified. It was noted that the fracture site had extensive comminution. There was comminuted bone anteriorly just superior to the femoral implant and posteriorly as well. Reduction maneuver was performed and the fracture was brought out to length. Fracture site was irrigated with sterile saline. AP and lateral C-arm views confirmed satisfactory length of the fracture. There was extensive comminution and bone loss along the posterior cortex. Nearly the entire supracondylar region was comminuted. A 12-hole distal femoral plate was chosen. Plate was laid along the lateral cortex of the femur. Two K-wires were placed distally and position of the plate was confirmed to be satisfactory. A cortical screw followed by 4.5 locking screws was placed distally. Screws were different lengths because of the need to work around the femoral implant and cement. A stable construct was established distally. Next, the knee was once again brought out to length and 3 locking screws were placed proximal to the fracture site. The fracture was successfully bridged with the fracture brought out to length. Next, 2 Dall-Miles cables were used to further reduce some of the comminuted fracture fragments along the metaphyseal-diaphyseal junction. Once again, it was noted that there was extensive distal posterior bone loss. A third Dall-Miles cable was placed proximally along the plate as well. The fracture was bridged the construct was stable.The wound was copiously irrigated with sterile saline. The fascial layer was closed using interrupted # 1 Vicryls. The rest of the incision was closed in layered fashion using 0 and 2 -0 Vicryls. The skin was closed using nubia. Sterile Xeroform, 4x4s and Webril were used to cover the incision. Gopal wrap and a knee immobilizer were placed. Intended weightbearing will be nonweightbearing right lower extremity. Intended DVT prophylaxis will be Lovenox. [id number]/[id number] #: [id number] [facility]
[2019-04-29] MEDS: Levothyroxine TAB* 50 MCG TAB PO SCH (06:51)
[2019-04-29 07:09] LABS: ABS Lymphocytes 0.9 10^3/ul (1.0-4.8); ABS Monocytes 1.2 10^3/ul (0-0.8); ABS Neutrophils 7.3 10^3/ul (1.5-7.7); Hematocrit 23 % (35-47); Hemoglobin 7.8 g/dL (12.0-16.0); Lymphocyte % 9.5 %; Mean Corpuscular HGB Conc 34 g/dL (31-36); Mean Corpuscular Hemoglobin 32 pg (27-31); Mean Corpuscular Volume 94 fL (80-97); Mean Platelet Volume 7.6 fL (7.4-10.4); Platelet Count 191 10^3/uL (150-450); Red Blood Count 2.43 10^6 /uL (3.70-4.87); Red Cell Distribution Width 13 % (10-15); White Blood Count 9.4 10^3/uL (3.5-10.8)
[2019-04-29 07:24] LABS: BUN/Creatinine Ratio 16.7 (8-20); Calcium 7.7 mg/dL (8.6-10.3); EGFR African American 136.3 (>60); EGFR Non-African American 112.6 (>60); Potassium 3.4 mmol/L (3.5-5.0)
[2019-04-29] MEDS: oxyCODONE/Acetamin 5/325 MG* TAB PO PRN ×2 (08:26→20:08)
[2019-04-29] MEDS ORDERED: Enoxaparin(*) 40 MG/0.4 ML SYR SUBCUT SCH (09:00)
[2019-04-29] MEDS: Cholecalciferol TAB* 1000 UNITS PO SCH (09:28)
[2019-04-29] MEDS: Sertraline* 100 MG TAB PO SCH (09:28)
[2019-04-29] MEDS: LORazepam TAB(*) 0.5 MG PO PRN ×2 (09:28→20:07)
[2019-04-29] MEDS: Magnesium Oxide TAB* 400 MG PO SCH ×2 (09:28→20:17)
[2019-04-29] MEDS: CMCS:Pravastatin (NF) 20 MG TAB PO SCH (09:29)
[2019-04-29] MEDS: Ascorbic Acid TAB* 500 MG PO SCH ×2 (09:30→20:17)
--- NOTE | 2019-04-29 13:29 | PN ---
Progress Note - Progress Note Date of Service: 04/29/19 SOAP: Subjective: []Patient seen and examined at bedside. She feels fatigued but otherwise is feeling okay. She has surgical site pain, tolerable. Denies CP, SOB, dizziness, nausea. Objective: []Gen: NAD, appears well RLE: Dressing CDI, thigh soft, DF/PF intact, DP2+, sensation intact to light touch distally Calves supple and and nontender without erythema, edema or palpable cords Assessment: []POST-OP DIAGNOSIS: Right displaced comminuted distal femoral periprosthetic fracture. OPERATIVE PROCEDURE: Open reduction and internal fixation of the right distal femoral periprosthetic fracture. Plan: []NWB RLE Right knee immobilizer lovenox 40 mg sq qd x 30 days Recheck H&H tomorrow, aware she may need PRBC if H&H drops further/ low BP, verbally consent. Will need paper signed if prbc to be given. Vital Signs Temp 98.5 F 04/29/19 11:34 Pulse 77 04/29/19 11:34 Resp 18 04/29/19 13:18 BP 104/58 04/29/19 11:34 Pulse Ox 99 04/29/19 11:34 Intake & Output 04/28/19 04/29/19 04/29/19 18:59 06:59 18:59 Intake Total 762 1905 1050 Output Total 0 655 500 Balance 762 1250 550 Intake: IV Fluids 762 1450 995 LR 1400 NS (0.9%) 762 995 NS 50ML, Cefazolin 2G 50 IVPB 55 55 ABX - CEFAZOLIN 55 55 Oral 0 400 Output: Urine 0 Dewitt 305 500 Estimated Blood Loss 350 Other: Estimated Void Medium Small # Voids 1 Laboratory Last Values WBC 9.4 10^3/uL (3.5-10.8) 04/29/19 06:56 RBC 2.43 10^6 /uL (3.70-4.87) L 04/29/19 06:56 Hgb 7.8 g/dL (12.0-16.0) L 04/29/19 06:56 Hct 23 % (35-47) L 04/29/19 06:56 MCV 94 fL (80-97) 04/29/19 06:56 MCH 32 pg (27-31) H 04/29/19 06:56 MCHC 34 g/dL (31-36) 04/29/19 06:56 RDW 13 % (10-15) 04/29/19 06:56 Plt Count 191 10^3/uL (150-450) 04/29/19 06:56 MPV 7.6 fL (7.4-10.4) 04/29/19 06:56 Neut % (Auto) 77.8 % 04/29/19 06:56 Lymph % (Auto) 9.5 % 04/29/19 06:56 Finney % (Auto) 12.3 % 04/29/19 06:56 Eos % (Auto) 0.0 % 04/29/19 06:56 Baso % (Auto) 0.4 % 04/29/19 06:56 Absolute Neuts (auto) 7.3 10^3/ul (1.5-7.7) 04/29/19 06:56 Absolute Lymphs (auto) 0.9 10^3/ul (1.0-4.8) L 04/29/19 06:56 Absolute Monos (auto) 1.2 10^3/ul (0-0.8) H 04/29/19 06:56 Absolute Eos (auto) 0.0 10^3/ul (0-0.6) 04/29/19 06:56 Absolute Basos (auto) 0.0 10^3/ul (0-0.2) 04/29/19 06:56 Absolute Nucleated RBC 0.0 10^3/ul 04/29/19 06:56 Nucleated RBC % 0.0 04/29/19 06:56 INR (Anticoag Therapy) 1.00 (0.82-1.09) 04/28/19 00:35 APTT 31.3 seconds (26.0-38.0) 04/28/19 00:35 Sodium 135 mmol/L (135-145) 04/29/19 06:56 Potassium 3.4 mmol/L (3.5-5.0) L 04/29/19 06:56 Chloride 106 mmol/L (101-111) 04/29/19 06:56 Carbon Dioxide 24 mmol/L (22-32) 04/29/19 06:56 Anion Gap 5 mmol/L (2-11) 04/29/19 06:56 BUN 9 mg/dL (6-24) 04/29/19 06:56 Creatinine 0.54 mg/dL (0.51-0.95) 04/29/19 06:56 Est GFR ( Amer) 136.3 (>60) 04/29/19 06:56 Est GFR (Non-Af Amer) 112.6 (>60) 04/29/19 06:56 BUN/Creatinine Ratio 16.7 (8-20) 04/29/19 06:56 Glucose 148 mg/dL (70-100) H 04/29/19 06:56 Lactic Acid 0.7 mmol/L (0.5-2.0) 04/28/19 00:35 Calcium 7.7 mg/dL (8.6-10.3) L 04/29/19 06:56 Total Bilirubin 0.40 mg/dL (0.2-1.0) 04/28/19 00:35 AST 20 U/L (13-39) 04/28/19 00:35 ALT 16 U/L (7-52) 04/28/19 00:35 Alkaline Phosphatase 58 U/L (34-104) 04/28/19 00:35 Troponin I 0.00 ng/mL (<0.03) 04/28/19 00:35 Total Protein 6.5 g/dL (6.4-8.9) 04/28/19 00:35 Albumin 4.1 g/dL (3.2-5.2) 04/28/19 00:35 Globulin 2.4 g/dL (2-4) 04/28/19 00:35 Albumin/Globulin Ratio 1.7 (1-3) 04/28/19 00:35 Urine Color Yellow 04/28/19 04:10 Urine Appearance Clear 04/28/19 04:10 Urine pH 6.0 (5-9) 04/28/19 04:10 Ur Specific [place] 1.014 (1.010-1.030) 04/28/19 04:10 Urine Protein Negative (Negative) 04/28/19 04:10 Urine Ketones Trace (Negative) A 04/28/19 04:10 Urine Blood Negative (Negative) 04/28/19 04:10 Urine Nitrate Negative (Negative) 04/28/19 04:10 Urine Bilirubin Negative (Negative) 04/28/19 04:10 Urine Urobilinogen Negative (Negative) 04/28/19 04:10 Ur Leukocyte Esterase Negative (Negative) 04/28/19 04:10 Urine Glucose Negative (Negative) 04/28/19 04:10 Urine Ascorbic Acid * (Negative) A 04/28/19 04:10 Blood Type A Positive 04/28/19 00:35 Antibody Screen Negative 04/28/19 00:35
[2019-04-29] MEDS ORDERED: HYDROmorphone INJ* 0.5 MG/0.5 ML SYRINGE IV SLOW PU ONE (15:04)
[2019-04-29] MEDS ORDERED: HYDROmorphone INJ* 0.5 MG/0.5 ML SYRINGE ONE (15:36)
[2019-04-29] MEDS: Morphine TAB Extended Release (*) 15 MG TAB.ER PO SCH (16:27)
[2019-04-30] MEDS: LORazepam TAB(*) 0.5 MG PO PRN ×3 (04:00→19:55)
[2019-04-30] MEDS: Morphine TAB Extended Release (*) 15 MG TAB.ER PO SCH ×2 (04:00→16:18)
[2019-04-30] MEDS: Levothyroxine TAB* 50 MCG TAB PO SCH (05:51)
[2019-04-30 06:22] LABS: ABS Basophils 0.1 10^3/ul (0-0.2); ABS Eosinophils 0.1 10^3/ul (0-0.6); ABS Monocytes 0.8 10^3/ul (0-0.8); ABS Neutrophils 4.2 10^3/ul (1.5-7.7); Eosinophil % 0.9 %; Hematocrit 19 % (35-47); Hemoglobin 6.7 g/dL (12.0-16.0); Mean Corpuscular HGB Conc 36 g/dL (31-36); Mean Corpuscular Hemoglobin 33 pg (27-31); Mean Corpuscular Volume 94 fL (80-97); Mean Platelet Volume 8.1 fL (7.4-10.4); Platelet Count 149 10^3/uL (150-450); Red Blood Count 2.02 10^6 /uL (3.70-4.87); Red Cell Distribution Width 13 % (10-15); White Blood Count 6.2 10^3/uL (3.5-10.8)
[2019-04-30 06:46] LABS: BUN/Creatinine Ratio 14.3 (8-20); Calcium 7.7 mg/dL (8.6-10.3); EGFR African American 152.4 (>60); Potassium 3.6 mmol/L (3.5-5.0)
[2019-04-30] MEDS: oxyCODONE/Acetamin 5/325 MG* TAB PO PRN ×3 (07:47→19:52)
[2019-04-30] MEDS ORDERED: Polyethylene Glycol 3350* 17 GM PACKET PO PRN (08:57)
[2019-04-30] MEDS ORDERED: Magnesium Hydroxide LIQ* 30 ML UDC PO PRN (08:58)
--- NOTE | 2019-04-30 09:09 | PN ---
Progress Note - Progress Note Date of Service: 04/30/19 SOAP: Subjective: []Patient seen and examined at bedside. She feels better than yesterday, with less fatigue after getting a good nights rest. She has not tried to get out of bed yet this morning but is not dizzy in bed. Denies CP, SOB, nausea. Objective: []Gen: NAD, appears well RLE: Dressing CDI, thigh soft, DF/PF intact, DP2+, sensation intact to light touch distally. Knee immobilizer in place. Calves supple and and nontender without erythema, edema or palpable cords Assessment: []POST-OP DIAGNOSIS: Right displaced comminuted distal femoral periprosthetic fracture. OPERATIVE PROCEDURE: Open reduction and internal fixation of the right distal femoral periprosthetic fracture. Plan: []NWB RLE Right knee immobilizer lovenox 40 mg sq qd x 30 days - hold today but to hgb less than 7. continue SCDs pRBC 1 unit ordered. Work with PT later today after blood has been given. Likely DC home tomorrow Vital Signs Temp 99.1 F 04/30/19 08:15 Pulse 80 04/30/19 08:15 Resp 18 04/30/19 08:15 BP 123/51 04/30/19 08:15 Pulse Ox 100 04/30/19 08:15 Intake & Output 04/29/19 04/30/19 04/30/19 18:59 06:59 18:59 Intake Total 1050 505 Output Total 500 1400 Balance 550 -895 Intake: IV Fluids 995 10 NS (0.9%) 995 10 IVPB 55 55 ABX - CEFAZOLIN 55 55 Oral 440 Output: Urine 0 1400 Dewitt 500 Other: Estimated Void Small # Bowel Movements 0 # Voids 1 Laboratory Last Values WBC 6.2 10^3/uL (3.5-10.8) 04/30/19 05:37 RBC 2.02 10^6 /uL (3.70-4.87) L 04/30/19 05:37 Hgb 6.7 g/dL (12.0-16.0) L 04/30/19 05:37 Hct 19 % (35-47) L 04/30/19 05:37 MCV 94 fL (80-97) 04/30/19 05:37 MCH 33 pg (27-31) H 04/30/19 05:37 MCHC 36 g/dL (31-36) 04/30/19 05:37 RDW 13 % (10-15) 04/30/19 05:37 Plt Count 149 10^3/uL (150-450) L 04/30/19 05:37 MPV 8.1 fL (7.4-10.4) 04/30/19 05:37 Neut % (Auto) 68.4 % 04/30/19 05:37 Lymph % (Auto) 16.0 % 04/30/19 05:37 [place] % (Auto) 13.4 % 04/30/19 05:37 Eos % (Auto) 0.9 % 04/30/19 05:37 Baso % (Auto) 1.3 % 04/30/19 05:37 Absolute Neuts (auto) 4.2 10^3/ul (1.5-7.7) 04/30/19 05:37 Absolute Lymphs (auto) 1.0 10^3/ul (1.0-4.8) 04/30/19 05:37 Absolute Monos (auto) 0.8 10^3/ul (0-0.8) 04/30/19 05:37 Absolute Eos (auto) 0.1 10^3/ul (0-0.6) 04/30/19 05:37 Absolute Basos (auto) 0.1 10^3/ul (0-0.2) 04/30/19 05:37 Absolute Nucleated RBC 0.0 10^3/ul 04/30/19 05:37 Nucleated RBC % 0.0 04/30/19 05:37 INR (Anticoag Therapy) 1.00 (0.82-1.09) 04/28/19 00:35 APTT 31.3 seconds (26.0-38.0) 04/28/19 00:35 Sodium 133 mmol/L (135-145) L 04/30/19 05:37 Potassium 3.6 mmol/L (3.5-5.0) 04/30/19 05:37 Chloride 103 mmol/L (101-111) 04/30/19 05:37 Carbon Dioxide 29 mmol/L (22-32) 04/30/19 05:37 Anion Gap 1 mmol/L (2-11) L 04/30/19 05:37 BUN 7 mg/dL (6-24) 04/30/19 05:37 Creatinine 0.49 mg/dL (0.51-0.95) L 04/30/19 05:37 Est GFR ( Amer) 152.4 (>60) 04/30/19 05:37 Est GFR (Non-Af Amer) 126.0 (>60) 04/30/19 05:37 BUN/Creatinine Ratio 14.3 (8-20) 04/30/19 05:37 Glucose 113 mg/dL (70-100) H 04/30/19 05:37 Lactic Acid 0.7 mmol/L (0.5-2.0) 04/28/19 00:35 Calcium 7.7 mg/dL (8.6-10.3) L 04/30/19 05:37 Total Bilirubin 0.40 mg/dL (0.2-1.0) 04/28/19 00:35 AST 20 U/L (13-39) 04/28/19 00:35 ALT 16 U/L (7-52) 04/28/19 00:35 Alkaline Phosphatase 58 U/L (34-104) 04/28/19 00:35 Troponin I 0.00 ng/mL (<0.03) 04/28/19 00:35 Total Protein 6.5 g/dL (6.4-8.9) 04/28/19 00:35 Albumin 4.1 g/dL (3.2-5.2) 04/28/19 00:35 Globulin 2.4 g/dL (2-4) 04/28/19 00:35 Albumin/Globulin Ratio 1.7 (1-3) 04/28/19 00:35 Urine Color Yellow 04/28/19 04:10 Urine Appearance Clear 04/28/19 04:10 Urine pH 6.0 (5-9) 04/28/19 04:10 Ur Specific [place] 1.014 (1.010-1.030) 04/28/19 04:10 Urine Protein Negative (Negative) 04/28/19 04:10 Urine Ketones Trace (Negative) A 04/28/19 04:10 Urine Blood Negative (Negative) 04/28/19 04:10 Urine Nitrate Negative (Negative) 04/28/19 04:10 Urine Bilirubin Negative (Negative) 04/28/19 04:10 Urine Urobilinogen Negative (Negative) 04/28/19 04:10 Ur Leukocyte Esterase Negative (Negative) 04/28/19 04:10 Urine Glucose Negative (Negative) 04/28/19 04:10 Urine Ascorbic Acid * (Negative) A 04/28/19 04:10 Blood Type A Positive 04/29/19 06:55 Antibody Screen Negative 04/28/19 00:35 Crossmatch See Detail 04/28/19 00:35
[2019-04-30] MEDS: Cholecalciferol TAB* 1000 UNITS PO SCH (09:20)
[2019-04-30] MEDS: Magnesium Oxide TAB* 400 MG PO SCH ×2 (09:21→19:52)
[2019-04-30] MEDS: Ascorbic Acid TAB* 500 MG PO SCH ×2 (09:21→19:54)
[2019-04-30] MEDS: Docusate CAP* 100 MG PO PRN ×2 (09:21→19:52)
[2019-04-30] MEDS: Sertraline* 100 MG TAB PO SCH (09:22)
[2019-04-30] MEDS: CMCS:Pravastatin (NF) 20 MG TAB PO SCH (09:23)
[2019-05-01] MEDS: Morphine TAB Extended Release (*) 15 MG TAB.ER PO SCH ×2 (03:59→16:33)
[2019-05-01] MEDS: Levothyroxine TAB* 50 MCG TAB PO SCH (05:32)
[2019-05-01 06:59] LABS: Hematocrit 22 % (35-47); Hemoglobin 7.5 g/dL (12.0-16.0); Mean Corpuscular HGB Conc 35 g/dL (31-36); Mean Corpuscular Hemoglobin 32 pg (27-31); Mean Corpuscular Volume 91 fL (80-97); Mean Platelet Volume 8.2 fL (7.4-10.4); Platelet Count 138 10^3/uL (150-450); Red Blood Count 2.37 10^6 /uL (3.70-4.87); Red Cell Distribution Width 17 % (10-15); White Blood Count 5.4 10^3/uL (3.5-10.8)
[2019-05-01 07:20] LABS: Calcium 7.8 mg/dL (8.6-10.3); EGFR African American 148.9 (>60); EGFR Non-African American 123.1 (>60); Potassium 3.8 mmol/L (3.5-5.0)
[2019-05-01] MEDS: Magnesium Oxide TAB* 400 MG PO SCH (07:49)
[2019-05-01] MEDS: LORazepam TAB(*) 0.5 MG PO PRN ×2 (07:49→13:11)
[2019-05-01] MEDS: Cholecalciferol TAB* 1000 UNITS PO SCH (07:49)
[2019-05-01] MEDS: Ascorbic Acid TAB* 500 MG PO SCH (07:50)
[2019-05-01] MEDS: Sertraline* 100 MG TAB PO SCH (07:50)
[2019-05-01] MEDS: oxyCODONE/Acetamin 5/325 MG* TAB PO PRN ×2 (07:50→13:12)
[2019-05-01] MEDS: CMCS:Pravastatin (NF) 20 MG TAB PO SCH (07:50)
[2019-05-01] MEDS: Docusate CAP* 100 MG PO PRN (07:54)
[2019-05-01] MEDS ORDERED: Enoxaparin(*) 40 MG/0.4 ML SYR SUBCUT SCH (09:00)
--- NOTE | 2019-05-01 13:22 | DS ---
Orthopedic Discharge Summary - Discharge Summary Date of Admission:04/28/19 Date of Discharge: 05/01/2019 Date of Surgery: 04/28/2019 Attending Orthopedic Provider: Dr. Chaparro Pre-operative Diagnosis: Right displaced comminuted distal femoral periprosthetic fracture Operative Procedure: Open reduction and internal fixation of the right distal femoral periprosthetic fracture. Disposition of Patient: Home Home care vs Outpatient services: Home care Condition of Patient: Good Pain medication RX at discharge: Percocet 5/325 and MS Contin 15 mg DVT prophylaxis RX at discharge: Eliquis 2.5 mg History: RAJESH CRUZ is a 68 year old F s/p fall. States she was moving a mattress and she ended up falling down some stairs and landing on her right knee. Patient underwent an Open reduction and internal fixation of the right distal femoral periprosthetic fracture. Hospital Course: RAJESH was admitted to [facility] on 04/28/19. Patient underwent a Open reduction and internal fixation of the right distal femoral periprosthetic fracture followed by a brief recovery in PACU and transfer to the Short Stay Surgical Unit in stable condition. Our hospitalist service, physical therapy and occupational therapy also participated in this patients care. Post-op day 1: patient was alert and in no acute distress. Dressing was clean, dry and intact. Operative extremity dorsiflexion and plantarflexion intact, sensation intact to light touch distally, DP2+. Post-op day two: dressing was changed, incision was clean, dry and intact. The pt had an H&H of 6.7 and 19. She felt fatigued and was given a unit of blood. POD 3 the pts H&H was 7.5 and 22. She continued to feel fatigued at that point although improved from the previous day. She wanted to go home but given symptoms she was given another unit of blood. Patient was deemed to be medically and orthopedically stable for discharge. Physical therapy goals were met. Home Medications Medication Instructions Recorded Confirmed Type Ascorbic Acid TAB* [Vitamin C 1,000 mg PO BID 01/18/14 04/27/19 History TAB*] Aspirin [Aspirin EC] 81 mg PO QAM 01/18/14 04/27/19 History Coenzyme Q10 (Ubidecarenone) [Co 200 mg PO QAM 01/18/14 04/27/19 History Q-10] Glucosamine Sulfate Dipot Chlr 750 mg PO BID 01/18/14 04/27/19 History [Glucosamine Sulfate] Levothyroxine Sodium [Levoxyl] 50 mcg PO QAM 01/18/14 04/27/19 History Magnesium [Magnacaps] 100 mg PO BID 01/18/14 04/27/19 History Sertraline HCl [Zoloft] 100 mg PO QAM 01/18/14 04/27/19 History Cholecalciferol [Vitamin D] 1 tab PO DAILY 08/24/15 04/27/19 History Pravastatin (NF) [Pravachol (NF)] 1 tab PO DAILY 08/24/15 04/27/19 History Discharge Instructions following Hip Fracture: Activity: * Weight Bearing:[Nonweigthtbearing operative extremity ] * Continue physical therapy and occupational therapy exercises as shown Wound care: Follow up in the office on Sat for dressing change at that time. Call Orthopedic office for: * Increased drainage * Redness * Increased pain * Fever Go to ER with shortness of breath or chest pain. Diet: * Regular diet * Increase fluids and fiber to prevent constipation. * Continue to use stool softeners, call office if no bowel motion within 48 hours. Medications See Home Medication List in your packet for medications that you should take after discharge. DVT Prophylaxis: Eliquis 2.5 mg bid x 30 days. Pain Control: MS Contin 15 mg 1 tab every 12 hours. Anticipate you will only need this for 3 more days. If sedated or confused, hold this medication. Percocet 5/325 mg: * Take 1 tab for moderate pain and 2 tabs for severe pain by mouth every 4 hours as needed. Maximum of 10 tabs per day. Hold for sedation, wean of as soon as pain allows. Please note that Percocet contains Tylenol (acetaminophen). Maximum daily dose of Tylenol is 4000 mg from all sources. Antibiotics are required prior to any dental work. FOLLOW UP: Follow up with Dr. Al] on Sat call for appointment FOLLOW UP: Dr. Gtz, [facility] call for appointment Please call the orthopedic office with any questions or concerns ([phone])
[2019-05-01 18:18] VITALS: BP 127/57
== END 2019-05-01 16:45 | disposition home or self-care (01) | DRG 481 ==
LOC: ED 23:15 → SSU 04-28 01:42
PROVIDERS: ADMIT Internal Medicine; ATTEND Orthopaedic Surgery Adult Reconstructive Orthopaedic Surgery
PROC: 0QSB04Z Reposition Right Lower Femur with Internal Fixation Device, Open Approach (ICD-10-PCS; principal; 2019-04-29)
PROC: 30233N1 Transfusion of Nonautologous Red Blood Cells into Peripheral Vein, Percutaneous Approach (ICD-10-PCS; 2019-04-30)
DX: S72.401A Unspecified fracture of lower end of right femur, initial encounter for closed fracture (principal); M97.11XA Periprosthetic fracture around internal prosthetic right knee joint, initial encounter; W10.8XXA Fall (on) (from) other stairs and steps, initial encounter; D64.9 Anemia, unspecified; Z96.642 Presence of left artificial hip joint; Z96.651 Presence of right artificial knee joint; M19.90 Unspecified osteoarthritis, unspecified site; M85.88 Other specified disorders of bone density and structure, other site; Y92.009 Unspecified place in unspecified non-institutional (private) residence as the place of occurrence of the external cause; E03.9 Hypothyroidism, unspecified; Z86.73 Personal history of transient ischemic attack (TIA), and cerebral infarction without residual deficits; Z79.82 Long term (current) use of aspirin; Z79.890 Hormone replacement therapy; Z79.899 Other long term (current) drug therapy
CPT/HCPCS: 36415; 76000; 80048; 80053; 81003; 83605; 84484; 85014; 85018; 85025; 85027; 85610; 85730; 86850; 86900; 86901; 86922; 93005; 96374; 99284; A9270-GY; C1713; C1776; J0690; J1100; J1170; J1200; J1650; J2060; J2250; J2405; J2704; J3010; J3490; P9040